=== PATIENT | female | born 1990 | race Hispanic/Latino ===

== ENCOUNTER 2016-08-03 23:35 | Emergency (ER) | payer OTHER ==
[2016-08-03 23:47] VITALS: BP 137/85; PULSE 108; RESP 18; TEMP 98.4; O2SAT 100
[2016-08-04] MEDS ORDERED: Alum-Mag Hydrox-Simethicone Susp (30 mL) PO STA (00:10)
--- NOTE | 2016-08-04 00:12 | ED PDOC ---
HPI: Abdomen Time Seen by Provider: 08/03/16 23:47 Chief Complaint (Nursing): Fever Chief Complaint (Provider): Abdominal Pain History Per: Patient Additional Complaint(s): 26 yo female, no PMH, presents to ED with complaints of a 5 day history of epigastric abdominal pain and intermittent fevers,. Pt denies any associated N/V /D. (+) decreased appetite. Pt last took Tylenol for fever at 20:30 Past Medical History Reviewed: Nursing Documentation, Vital Signs Vital Signs: Last Vital Signs Temp 98.4 F 08/03/16 23:44 Pulse 108 H 08/03/16 23:44 Resp 18 08/03/16 23:44 BP 137/85 08/03/16 23:44 Pulse Ox 100 08/04/16 00:12 - Medical History PMH: No Chronic Diseases - Surgical History Surgical History: No Surg Hx - Family History Family History: States: No Known Family Hx - Living Arrangements Living Arrangements: With Family - Social History Current smoker - smoking cessation education provided: No - Home Medications Home Medications: Ambulatory Orders Medication Instructions Recorded Ibuprofen [Motrin] 600 mg PO Q6 #20 tab 08/04/16 Ondansetron ODT [Zofran ODT] 4 mg PO Q6 PRN #10 odt 08/04/16 traMADol [Ultram] 50 mg PO Q4 #5 tab 08/04/16 - Allergies Allergies/Adverse Reactions: Allergies Allergy/AdvReac Type Severity Reaction Status Date / Time amoxicillin Allergy RASH Verified 08/03/16 23:44 Review of Systems ROS Statement: Except As Marked, All Systems Reviewed And Found Negative Constitutional: Positive for: Fever Gastrointestinal: Positive for: Abdominal Pain Physical Exam - Reviewed Nursing Documentation Reviewed: Yes Vital Signs Reviewed: Yes - Physical Exam Appears: Positive for: Well, Non-toxic, No Acute Distress Head Exam: Positive for: ATRAUMATIC, NORMAL INSPECTION, NORMOCEPHALIC Skin: Positive for: Normal Color, Warm, DRY Eye Exam: Positive for: EOMI, Normal appearance, PERRL ENT: Positive for: Normal ENT Inspection Neck: Positive for: Normal, Painless ROM Cardiovascular/Chest: Positive for: Regular Rate, Rhythm Respiratory: Positive for: CNT, Normal Breath Sounds Gastrointestinal/Abdominal: Positive for: Bowel Sounds, Soft, Tenderness (mild epigastric tenderness. Negative Sawyer's sign). Negative for: Distended, Guarding Back: Positive for: Normal Inspection Extremity: Positive for: Normal ROM Neurologic/Psych: Positive for: Alert, Oriented - Laboratory Results Result Diagrams: 08/04/16 00:56 08/04/16 00:56 - ECG O2 Sat by Pulse Oximetry: 100 Medical Decision Making Medical Decision Making: IV access established and treatment initiated with NS and Toradol CBC resulted WNL WBC 6.8 Hgb 14.0 COMP resulted with Elevated Bili, AST/ALT and Alk Phos Lipase WNL 26 years old, female; Pain and signs and symptoms; Fever; Abdominal pain; Colic ; Additional info: R/O cholecystitis TECHNIQUE: Real-time ultrasound of the right upper quadrant with image documentation. EXAM DATE/TIME: Exam ordered 08/04/2016 1:44 AM COMPARISON: No relevant prior studies available. FINDINGS: Liver: The liver is of normal size measuring 13.3 cm with no focal defects. No intrahepatic bile duct dilation. Gallbladder: The gallbladder is echogenic and completely contracted with no stones but wall thickening measuring up to 6 mm. There is a negative sono Sawyer's sign. Common bile duct: The CBD is normal measuring 4 mm. No stones. No dilation. Pancreas: The pancreas is normal. Right kidney: The right kidney is normal measuring 10.4 cm. No stones. No hydronephrosis. Aorta: The aorta is normal measuring 12 mm. No aneurysm. IMPRESSION: 1. Completely contracted gallbladder with wall thickening measuring up to 6 mm and no stones. There is a negative sono Sawyer's sign. 2. Otherwise negative right upper quadrant sonogram. Thank you Case discussed with ED MD and agreed that Pt stable for discharge at this time. Pt educated on results and demonstrated full understanding. Pt doing well on re-eval, abdomen remains soft, minimally distended Pt given GI follow up and RX to use as needed. Advised to return to ED with any concerns Disposition - Clinical Impression Clinical Impression: Abdominal pain, Elevated LFTs - Patient ED Disposition Is Patient to be Admitted: No - Disposition Referrals: Adriel ORTIZ,MD Tobin [Medical Doctor] - Disposition: Routine/Home Disposition Time: 03:38 Condition: STABLE Prescriptions: Ibuprofen [Motrin] 600 mg PO Q6 #20 tab Ondansetron ODT [Zofran ODT] 4 mg PO Q6 PRN #10 odt PRN Reason: Nausea/Vomiting traMADol [Ultram] 50 mg PO Q4 #5 tab Instructions: Acute Abdominal Pain (ED) Forms: [employer] (Thai)
[2016-08-04] MEDS ORDERED: Alum-Mag Hydrox-Simethicone Susp (30 mL) ONE (00:31)
[2016-08-04] MEDS ORDERED: Lidocaine 2% Inj (20ml) ONE (00:31)
[2016-08-04 00:36] LABS: RBC URINE 14 /hpf (0-3); URINE BACTERIA OCC (<OCC); URINE BILIRUBIN MODERATE (NEGATIVE); URINE BLOOD SMALL (NEGATIVE); URINE COLOR AMBER (YELLOW); URINE GLUCOSE (UA) NEG (Normal); URINE KETONE 80 mg/dL (NEGATIVE); URINE LEUKOCYTE ESTERASE NEG Leu/uL (Negative); URINE PROTEIN 100 mg/dL (NEGATIVE); WBC URINE 4 /hpf (0-5)
[2016-08-04 01:19] LABS: CHLORIDE 103 mmol/L (98-107); SODIUM 137 mmol/l (132-148)
[2016-08-04 01:20] LABS: POTASSIUM 3.7 MMOL/L (3.6-5.0)
[2016-08-04 01:21] LABS: AMYLASE 74 U/L (30-110)
[2016-08-04 01:22] LABS: ALB/GLOB RATIO 1.1 (1.0-2.1); ALKALINE PHOSPHATASE 201 U/L (38-126); ALT/SGPT 241 U/L (9-52); AST/SGOT 223 U/L (14-36); BILIRUBIN,TOTAL 3.3 mg/dl (0.2-1.3); BLOOD UREA NITROGEN 4 mg/dl (7-17); CALCIUM 8.8 mg/dL (8.4-10.2); CARBON DIOXIDE 23 mmol/L (22-30); GFR AFRICAN-AMERICAN > 60; GLUCOSE,RANDOM 89 mg/dL (65-105); LIPASE 117 U/L (23-300); TOTAL PROTEIN 7.9 G/DL (6.3-8.2)
[2016-08-04 01:40] LABS: BASO % 0.3 % (0.0-2.0); EOS % 0.2 % (0.0-4.0); HEMATOCRIT 39.5 % (34.0-47.0); LYMPH # 3.4 K/uL (1.0-4.3); LYMPH % 50.4 % (20.0-40.0); MEAN CELL VOLUME 83.2 fl (81.0-99.0); MEAN CORPUSCULAR HEMOGLOBIN 29.5 pg (27.0-31.0); MEAN CORPUSCULAR HGB CONC 35.4 g/dL (33.0-37.0); MEAN PLATELET VOLUME 10.2 fl (7.2-11.7); MONO # 0.6 K/uL (0.0-0.8); MONO % 9.2 % (0.0-10.0); NEUT # 2.7 K/uL (1.8-7.0); NEUT % 39.9 % (50.0-75.0); NRBC % 0.3 % (0.0-0.0); PLATELET COUNT 160 K/uL (130-400); RED CELL DISTRIBUTION WIDTH 13.6 % (11.5-14.5); WHITE BLOOD COUNT 6.8 K/uL (4.8-10.8)
[2016-08-04 07:30] LABS: LARGE PLATELETS PRESENT; NEUTROPHIL 30 % (42-75); REACTIVE LYMPHOCYTES 14 % (0-0); TOTAL CELLS COUNTED 100
--- NOTE | 2016-08-04 12:00 | US ---
HISTORY: r/o cholecystitis COMPARISON: None. TECHNIQUE: Sonographic evaluation of the right upper quadrant of the abdomen. FINDINGS: LIVER: Measures 14.1 cm in length. Smooth contour and normal echogenicity of the liver parenchyma. No mass. No intrahepatic bile duct dilatation. GALLBLADDER: Gallbladder is collapsed which presumably accounts for thick-walled appearance . . . The gallbladder wall measures approximately 6.3 mm. This is likely due to incomplete distention - nonfasting state however correlation with history recommended. . There may also be collapse of bowel posterior/adjacent to the posterior wall gallbladder mimicking calcification. Recommend repeat fasting state gallbladder ultrasound for further evaluation and to exclude porcelain gallbladder, the entity of which is associated with gallbladder carcinoma. No pericholecystic fluid collections or sonographic Sawyer sign. COMMON BILE DUCT: Common bile duct measurement ranges between 2.6-3.9 mm mm. No stones. No dilatation. PANCREAS: Unremarkable as visualized. No mass. No ductal dilatation. RIGHT KIDNEY: Measures 10.4 x 3.4 x 4.3 cm in length. Normal echogenicity. No calculus, mass, or hydronephrosis. AORTA: No aneurysmal dilatation. IVC: Unremarkable. OTHER FINDINGS: None . IMPRESSION: Gallbladder wall is thickened which is likely due to nonfasting state. There also appears to be a linear echogenic focus along the posterior margin of the gallbladder wall which probably represents collapsed of the echogenic bowel mimicking calcification of the gallbladder wall. This a gallbladder ultrasound therefore must be repeated during proper fasting state at to exclude gallbladder wall calcification - porcelain gallbladder. Note that this report was placed in [facility] review folder for followup. The study also discussed with emergency room GODWIN Cox at approximately 11:54 a.m. with written down and read back verification.
== END 2016-08-04 03:20 | disposition home or self-care (01) ==
LOC: H.ER 23:35
DX: R10.13 Epigastric pain (principal); R94.5 Abnormal results of liver function studies; R50.9 Fever, unspecified